=== PATIENT | male | born 1930 | race Caucasian/White ===

== ENCOUNTER 2018-12-01 15:48 | Emergency (ER) | payer MEDICARE ==
--- NOTE | 2018-12-01 16:49 | Emergency Department Record ---
History of Present Illness - General Chief Complaint: Fall Injury Stated Complaint: FALL Time Seen by Provider: 12/01/18 16:10 Source: Patient Mode of Arrival: Ambulatory Limitations: No limitations - History of Present Illness Initial Comments: pt missed a chair today and injured his chest and r ribs. he states he did not fall hard but he wanted to make sure there is no damage. 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: No Review of Systems Reviewed: No additional complaints except as noted below Constitutional: Reports: As per HPI. Denies: Chills, Fever, Malaise, Night sweats, Weakness, Weight change Eyes: Reports: As per HPI. Denies: Eye discharge, Eye pain, Photophobia, Vision change ENT: Reports: As per HPI. Denies: Congestion, Dental pain, Ear pain, Epistaxis, Hearing loss, Throat pain Respiratory: Reports: As per HPI. Denies: Cough, Dyspnea, Hemoptysis, Stridor, Wheezes Cardiovascular: Reports: As per HPI. Denies: Arrhythmia, Chest pain, Dyspnea on exertion, Edema, Murmurs, Orthopnea, Palpitations, Paroxysmal nocturnal dyspnea, Rheumatic Fever, Syncope Endocrine: Reports: As per HPI. Denies: Fatigue, Heat or cold intolerance, Polydipsia, Polyuria Gastrointestinal: Reports: As per HPI. Denies: Abdominal pain, Constipation, Diarrhea, Hematemesis, Hematochezia, Melena, Nausea, Vomiting Genitourinary: Reports: As per HPI. Denies: Dysuria, Frequency, Hematuria, Incontinence, Retention, Testicular pain, Testicular mass, Urgency Musculoskeletal: Reports: As per HPI. Denies: Arthralgia, Back pain, Gout, Joint swelling, Myalgia, Neck pain Skin: Reports: As per HPI. Denies: Bruising, Change in color, Change in hair/nails, Lesions, Pruritus, Rash Neurological: Reports: As per HPI. Denies: Abnormal gait, Confusion, Headache, Numbness, Paresthesias, Seizure, Tingling, Tremors, Vertigo, Weakness Psychiatric: Reports: As per HPI. Denies: Anxiety, Auditory hallucinations, Depression, Homicidal thoughts, Suicidal thoughts, Visual hallucinations Hematological/Lymphatic: Reports: As per HPI. Denies: Anemia, Blood Clots, Easy bleeding, Easy bruising, Swollen glands Past Medical History - SOCIAL HISTORY Smoking Status: Never smoker Alcohol Use: None Drug Use: None - RESPIRATORY Hx Respiratory Disorders: No - CARDIOVASCULAR Hx Cardio Disorders: Yes Hx Hypertension: Yes Comment:: high cholesterol, pacemaker - NEURO Hx Neuro Disorders: No - GI Hx GI Disorders: No - Hx Genitourinary Disorders: Yes Hx Prostate Problems: Yes - ENDOCRINE Hx Endocrine Disorders: No - MUSCULOSKELETAL Hx Musculoskeletal Disorders: No - PSYCH Hx Psych Problems: No - HEMATOLOGY/ONCOLOGY Hx Hematology/Oncology Disorders: Yes Hx Cancer: Yes (esophageal) Family Medical History Any Significant Family History?: No Physical Exam - General General Appearance: Alert, Oriented x3, Cooperative, Mild distress - Head Head exam: Normal inspection - Eye Eye exam: Normal appearance, PERRL, EOMI Pupils: Normal accommodation - ENT ENT exam: Normal exam, Mucous membranes moist, Normal external ear exam, Normal orophraynx Ear exam: Normal external inspection. negative: External canal tenderness Nasal Exam: Normal inspection. negative: Discharge, Sinus tenderness Mouth exam: Normal external inspection, Tongue normal Teeth exam: Normal inspection. negative: Dental caries Throat exam: Normal inspection. negative: Tonsillar erythema, Tonsillar exudate - Neck Neck exam: Normal inspection, Full ROM. negative: Tenderness - Respiratory Respiratory exam: Normal lung sounds bilaterally, Chest wall tenderness. nega tive: Respiratory distress - Cardiovascular Cardiovascular Exam: Regular rate, Normal rhythm, Normal heart sounds - GI/Abdominal GI/Abdominal exam: Soft, Normal bowel sounds. negative: Tenderness - Rectal Rectal exam: Deferred - exam: Deferred - Extremities Extremities exam: Normal inspection, Full ROM, Normal capillary refill. negative: Tenderness - Back Back exam: Reports: Normal inspection, Full ROM. Denies: Muscle spasm, Rash noted, Tenderness - Neurological Neurological exam: Alert, CN II-XII intact, Normal gait, Oriented X3 - Psychiatric Psychiatric exam: Normal affect, Normal mood - Skin Skin exam: Dry, Intact, Normal color, Warm Course Vital Signs 12/01/18 15:55 Temperature 98.1 F Pulse Rate 82 Respiratory 20 Rate Blood Pressure 162/105 Pulse Ox 94 L Disposition Disposition: Discharge Clinical Impression: Rib fracture Qualifiers: Encounter type: initial encounter Rib fracture type: single rib Fracture type: closed Laterality: right Qualified Code(s): S22.31XA - Fracture of one rib, right side, initial encounter for closed fracture CHF (congestive heart failure) Qualifiers: Heart failure type: unspecified Heart failure chronicity: chronic Qualified Code(s): I50.9 - Heart failure, unspecified Disposition: Home, Self-Care Condition: (1) Good Instructions: Fall Prevention for Older Adults (ED), Rib Fracture (ED), Heart Failure (ED) Additional Instructions: follow up with dr hinds tomorrow. take deep inspiration 5x an hour. tylenol for pain Forms: Patient Portal Access Quality - Quality Measures Quality Measures: N/A - Blood Pressure Screening Does Patient Have Any of the Following: Active Dx of HTN Blood Pressure Classification: Hypertensive Reading Systolic Measurement: 162 Diastolic Measurement: 105 Screening for High Blood Pressure: Patient Exclusion, Hx of HTN [G9744]
[2018-12-01] MEDS ORDERED: FUROSEMIDE 20 MG TABLET PO ONE (18:01)
--- NOTE | 2018-12-02 19:14 | RADIOLOGY REPORT ---
EXAM: RIBS, RIGHT W/PA CHEST HISTORY: RIGHT ANTERIOR RIB PAIN AFTER FALL. TECHNIQUE: Right ribs with PA chest. COMPARISON: Chest x-ray, 07/24/18. FINDINGS: Mildly displaced fracture of right rib #8 anteriorly. Left-sided cardiac pacemaker. The cardiac silhouette is enlarged. The pulmonary vasculature is congested with diffuse interstitial thickening. There is elevation of the left hemidiaphragm. Small bilateral pleural effusions, though the left pleural effusion may be larger if there is a subpulmonic component. No pneumothorax is seen. IMPRESSION: 1. RIGHT EIGHTH RIB FRACTURE. NO PNEUMOTHORAX. 2. MODERATE CONGESTIVE HEART FAILURE. JOB NUMBER: [id number] [facility]
== END 2018-12-01 18:47 | disposition home or self-care (01) ==
LOC: ER 15:48
DX: S22.31XA Fracture of one rib, right side, initial encounter for closed fracture (principal); I50.9 Heart failure, unspecified; W18.39XA Other fall on same level, initial encounter; Y93.9 Activity, unspecified; Y92.9 Unspecified place or not applicable; Y99.9 Unspecified external cause status; E78.00 Pure hypercholesterolemia, unspecified; Z95.0 Presence of cardiac pacemaker; Z85.01 Personal history of malignant neoplasm of esophagus
CPT/HCPCS: 99283

== ENCOUNTER 2018-12-02 18:34 | Emergency (ER) | payer MEDICARE ==
--- NOTE | 2018-12-02 19:01 | Emergency Department Record ---
History of Present Illness - General Chief Complaint: Shortness of breath Stated Complaint: JOHNNY,LOW OXYGEN LEVELS Time Seen by Provider: 12/02/18 18:44 Source: Patient Mode of Arrival: Wheelchair Limitations: No limitations - History of Present Illness Initial Comments: pt was here yesterday after a fall in which he cracked his r 8th rib. he also had some chf on his xray. he received lasix. since then he has gotten weaker and his oxygen sats have dropped to 88. he has been taking deep breaths MD Complaint: Shortness of breath Onset/Timin -: Days(s) Consistency: Getting worse Improves With: Nothing Worsens With: Nothing Associated Symptoms: Cough, Orthopnia Treatments Prior to Arrival: None - Related Data Allergies Allergy/AdvReac Type Severity Reaction Status Date / Time Penicillins Allergy PT UNSURE Verified 12/01/18 15:58 OF REACTION Travel Screening - Travel/Exposure Within Last 30 Days Have you traveled within the last 30 days?: No - Travel/Exposure Within Last Year Have you traveled outside the [place] in the last year?: No - Additonal Travel Details Have you been exposed to anyone with a communicable illness?: No Review of Systems Reviewed: No additional complaints except as noted below Constitutional: Reports: As per HPI. Denies: Chills, Fever, Malaise, Night sweats, Weakness, Weight change Eyes: Reports: As per HPI. Denies: Eye discharge, Eye pain, Photophobia, Vision change ENT: Reports: As per HPI. Denies: Congestion, Dental pain, Ear pain, Epistaxis, Hearing loss, Throat pain Respiratory: Reports: As per HPI. Denies: Cough, Dyspnea, Hemoptysis, Stridor, Wheezes Cardiovascular: Reports: As per HPI. Denies: Arrhythmia, Chest pain, Dyspnea on exertion, Edema, Murmurs, Orthopnea, Palpitations, Paroxysmal nocturnal dyspnea, Rheumatic Fever, Syncope Endocrine: Reports: As per HPI. Denies: Fatigue, Heat or cold intolerance, Polydipsia, Polyuria Gastrointestinal: Reports: As per HPI. Denies: Abdominal pain, Constipation, Diarrhea, Hematemesis, Hematochezia, Melena, Nausea, Vomiting Genitourinary: Reports: As per HPI. Denies: Dysuria, Frequency, Hematuria, Incontinence, Retention, Testicular pain, Testicular mass, Urgency Musculoskeletal: Reports: As per HPI. Denies: Arthralgia, Back pain, Gout, Joint swelling, Myalgia, Neck pain Skin: Reports: As per HPI. Denies: Bruising, Change in color, Change in hair/na ils, Lesions, Pruritus, Rash Neurological: Reports: As per HPI. Denies: Abnormal gait, Confusion, Headache, Numbness, Paresthesias, Seizure, Tingling, Tremors, Vertigo, Weakness Psychiatric: Reports: As per HPI. Denies: Anxiety, Auditory hallucinations, Depression, Homicidal thoughts, Suicidal thoughts, Visual hallucinations Hematological/Lymphatic: Reports: As per HPI. Denies: Anemia, Blood Clots, Easy bleeding, Easy bruising, Swollen glands Past Medical History - SOCIAL HISTORY Smoking Status: Never smoker Alcohol Use: None Drug Use: None - RESPIRATORY Hx Respiratory Disorders: No - CARDIOVASCULAR Hx Cardio Disorders: Yes Hx Hypertension: Yes Comment:: high cholesterol, pacemaker - NEURO Hx Neuro Disorders: No - GI Hx GI Disorders: No - Hx Genitourinary Disorders: Yes Hx Prostate Problems: Yes - ENDOCRINE Hx Endocrine Disorders: No - MUSCULOSKELETAL Hx Musculoskeletal Disorders: No - PSYCH Hx Psych Problems: No - HEMATOLOGY/ONCOLOGY Hx Hematology/Oncology Disorders: Yes Hx Cancer: Yes (esophageal) Family Medical History Any Significant Family History?: No Physical Exam - General General Appearance: Alert, Oriented x3, Cooperative, Mild distress - Head Head exam: Normal inspection - Eye Eye exam: Normal appearance, PERRL, EOMI Pupils: Normal accommodation - ENT ENT exam: Normal exam, Mucous membranes moist, Normal external ear exam, Normal orophraynx Ear exam: Normal external inspection. negative: External canal tenderness Nasal Exam: Normal inspection. negative: Discharge, Sinus tenderness Mouth exam: Normal external inspection, Tongue normal Teeth exam: Normal inspection. negative: Dental caries Throat exam: Normal inspection. negative: Tonsillar erythema, Tonsillar exudate - Neck Neck exam: Normal inspection, Full ROM. negative: Tenderness - Respiratory Respiratory exam: Normal lung sounds bilaterally. negative: Respiratory distress - Cardiovascular Cardiovascular Exam: Regular rate, Normal rhythm, Normal heart sounds - GI/Abdominal GI/Abdominal exam: Soft, Normal bowel sounds. negative: Tenderness - Rectal Rectal exam: Deferred - exam: Deferred - Extremities Extremities exam: Normal inspection, Full ROM, Normal capillary refill. negative: Tenderness - Back Back exam: Reports: Normal inspection, Full ROM. Denies: Muscle spasm, Rash noted, Tenderness - Neurological Neurological exam: Alert, CN II-XII intact, Normal gait, Oriented X3 - Psychiatric Psychiatric exam: Normal affect, Normal mood - Skin Skin exam: Dry, Intact, Normal color, Pallor, Warm Course Vital Signs 12/02/18 18:39 Temperature 97.5 F L Pulse Rate 101 H Respiratory 24 Rate Blood Pressure 166/110 Pulse Ox [address] L [address] - Reevaluation(s) Reevaluation #1: 12/02/18 21:40 ct shows moderate pleural effusions Reevaluation #2: 12/02/18 22:33 pt is diuresing Medical Decision Making - Lab Data Result diagrams: 12/02/18 19:02 12/02/18 19:02 Disposition Disposition: Transfer Clinical Impression: Pleural effusion, Hypoxia CHF (congestive heart failure) Qualifiers: Heart failure type: unspecified Heart failure chronicity: acute Qualified Code(s): I50.9 - Heart failure, unspecified Disposition: Acute Care Hospital Transfer Transfer To: [facility] Reason For Transfer: needs higher level of care, pulmonology Accepting Physician: dr merchant Time Discussed w/Accepting Physician: 21:45 Forms: Patient Portal Access Quality - Quality Measures Quality Measures: N/A - Blood Pressure Screening Does Patient Have Any of the Following: Active Dx of HTN Blood Pressure Classification: Hypertensive Reading Systolic Measurement: 166 Diastolic Measurement: 110 Screening for High Blood Pressure: Patient Exclusion, Hx of HTN [G9744]
[2018-12-02 19:06] LABS: ABSOLUTE NEUTROPHIL COUNT 10.44; HEMATOCRIT 46.9 % (42.0-52.0); HEMOGLOBIN 15.3 gm/dl (14.0-18.0); MEAN CELL VOLUME 97.1 fl (81-97); MEAN CORPUSCULAR HEMOGLOBIN 31.7 pg (27-33); MEAN CORPUSCULAR HGB CONC 32.6 g/dl (32-36); MEAN PLATELET VOLUME 10.4 fl (7.4-10.4); PLATELET COUNT 202 K/uL (130-400); RED BLOOD COUNT 4.83 M/uL (4.40-5.70); RED CELL DISTRIBUTION WIDTH 13.7 % (11.5-14.5)
[2018-12-02 19:15] LABS: PLATELET ESTIMATE NORMAL (NORMAL)
[2018-12-02 19:16] LABS: BLOOD UREA NITROGEN 22 mg/dL (8-23); CREATININE 0.9 mg/dL (0.7-1.2); EST GLOMERULAR FILTRATION RATE > 60 mL/min
[2018-12-02 19:18] LABS: TOTAL PROTEIN 7.7 g/dL (6.6-8.7)
[2018-12-02 19:19] LABS: GLUCOSE,RANDOM 195 mg/dL (74-109)
[2018-12-02 19:21] LABS: ALT/SGPT 26 U/L (<41); AST/SGOT 31 U/L (10.0-50.0)
[2018-12-02 19:22] LABS: ALB/GLOB RATIO 1.5 (1.1-1.8); ALBUMIN 4.6 g/dL (4.0-5.0); ALKALINE PHOSPHATASE 67 U/L (40-129)
[2018-12-02] MEDS ORDERED: FUROSEMIDE IV 40MG/4ML VIAL IVP ONE (19:36)
--- NOTE | 2018-12-03 21:00 | RADIOLOGY REPORT ---
EXAM: CHEST 2 VIEWS HISTORY: OXYGEN LEVELS BECOMING WORSE. PATIENT HAD FRACTURED RIBS. TECHNIQUE: Two views chest. COMPARISON: Chest and right rib study from 12/01/2018. FINDINGS: There is pulmonary edema. There is an increasing volume of left pleural effusion. Note is made of what looks like small bowel gas appearance superimposed over the left hemidiaphragm. There could be an underlying elevated left diaphragm. This is not visible on the prior exam. Hernia is not ruled out. No pneumothorax. No focal pathology in the right lung. The ribs that are visible show no displaced fractures. IMPRESSION: 1. SUSPICION OF INCREASING VOLUME OF LEFT PLEURAL EFFUSION WITH UNDERLYING PULMONARY EDEMA. 2. HIATAL HERNIA IS THE MOST LIKELY EXPLANATION FOR THE APPEARANCE OF BOWEL GAS IN THE LEFT HEMITHORAX. J[facility]BER: [id number] [facility]
--- NOTE | 2018-12-03 21:36 | CT ANGIOGRAM REPORT ---
EXAM: CT ANGIOGRAM CHEST CTA w contrast HISTORY: DECREASING OXYGEN LEVELS WITH HISTORY OF RIB FRACTURE. THE PATIENT FELL YESTERDAY. TECHNIQUE: CT angiogram of the chest using 82 mL Omnipaque-300 intravenously. 2D reconstruction was done with a dependent workstation. COMPARISON: None. FINDINGS: Normal caliber of the pulmonary trunk. Opacification is satisfactory. There is no pulmonary embolism. Thoracic aorta shows no aneurysm. There is heavy calcification. There is no sign of any obvious dissection. LUNGS: Moderate volume bilateral pleural effusions with associated atelectasis in both lower lobes. No pneumothorax or pulmonary contusion visible. There is underlying emphysema. Partially calcified probable granuloma right lower lobe is 7 mm in diameter. MEDIASTINUM: Airway shows some debris but no evidence of mucus plugging. There is no sign of mediastinal lymphadenopathy or mass. There is no air or hematoma. Dilated esophagus with current gastroesophageal reflux. The patient is at risk for aspiration. The heart is of normal size. There is a small volume of pericardial effusion. No evidence of pneumopericardium. Axilla shows no adenopathy. Soft tissue shows no acute findings or hematoma. Thoracic spine shows no acute finding. The sternum is intact. There is no evidence of rib fractures. Clavicles and scapulae are intact. IMPRESSION: 1. MODERATE-SIZED BILATERAL PLEURAL EFFUSIONS WITH ASSOCIATED ATELECTASIS. 2. PARTIALLY CALCIFIED RIGHT LOWER LOBE GRANULOMA. 3. EMPHYSEMA. NO SIGN OF PULMONARY CONTUSION OR PNEUMOTHORAX. 4. NO EVIDENCE OF PULMONARY EMBOLISM OR THORACIC AORTIC ANEURYSM OR DISSECTION. 5. MILD PERICARDIAL EFFUSION. JOB [facility]BER: [id number] [facility]
== END 2018-12-02 22:48 | disposition short-term general hospital (02) ==
LOC: ER 18:34
DX: I50.9 Heart failure, unspecified (principal); J90 Pleural effusion, not elsewhere classified; R09.02 Hypoxemia; I10 Essential (primary) hypertension; E78.00 Pure hypercholesterolemia, unspecified; Z95.0 Presence of cardiac pacemaker; Z85.01 Personal history of malignant neoplasm of esophagus
CPT/HCPCS: 99285 ×2; 96374; 80053; 84484; 85027; 83880; 71046; 71275; Q9967; J1940